=== PATIENT | male | born 1945 | race American Indian/Alaskan Native ===

== ENCOUNTER 2017-05-31 11:12 | Emergency (ER) | payer MEDICARE ==
[2017-05-31 11:13] VITALS: BMI 42.7
[2017-05-31 11:27] VITALS: O2SAT 99
[2017-05-31 12:30] LABS: BASO % 0.5 % (0.0-2.0); EOS # 0.1 K/uL (0.0-0.7); EOS % 1.6 % (0.0-4.0); LYMPH # 1.2 K/uL (1.0-4.3); LYMPH % 17.4 % (20.0-40.0); MEAN CELL VOLUME 79.4 fL (80.0-94.0); MEAN CORPUSCULAR HGB CONC 32.7 g/dL (33.0-37.0); MEAN PLATELET VOLUME 7.2 fL (7.2-11.7); MONO # 0.6 K/uL (0.0-0.8); MONO % 8.3 % (0.0-10.0); NEUT # 4.9 K/uL (1.8-7.0); NEUT % 72.2 % (50.0-75.0); RBC 4.75 Mil/uL (4.40-5.90); RED CELL DISTRIBUTION WIDTH 16.7 % (11.5-14.5); WHITE BLOOD COUNT 6.8 K/uL (4.8-10.8)
[2017-05-31 12:31] LABS: HEMOGLOBIN 12.3 g/dL (12.0-18.0)
[2017-05-31 12:40] LABS: INR 1.1; PROTHROMBIN TIME 12.2 SECONDS (9.7-12.2)
[2017-05-31 12:42] LABS: ALBUMIN 3.5 g/dL (3.5-5.0)
[2017-05-31 12:45] LABS: ALB/GLOB RATIO 1.1 (1.0-2.1); ALT/SGPT 23 U/L (21-72); AST/SGOT 34 U/L (17-59); BLOOD UREA NITROGEN 13 mg/dL (9-20); GFR AFRICAN-AMERICAN > 60; GFR NON-AFRICAN AMERICAN 54
[2017-05-31 12:46] LABS: CALCIUM 9.3 mg/dl (8.6-10.4)
[2017-05-31 12:55] LABS: B-TYPE NATRIURETIC PEPTIDE 90.5 pg/mL (0-900); CK-MB 2.22 ng/mL (0.0-3.38)
--- NOTE | 2017-05-31 12:58 | RAD ---
PROCEDURE: CHEST RADIOGRAPH, 1 VIEW HISTORY: SOB COMPARISON: None available. FINDINGS: LUNGS: History effort appears somewhat limited however there is no acute infiltrate identified at this time. PLEURA: No pneumothorax or pleural fluid seen. CARDIOVASCULAR: There is either intrinsic cardiomegaly or technically magnified. Pulmonary vascular pattern appears normal OSSEOUS STRUCTURES: No significant abnormalities. VISUALIZED UPPER ABDOMEN: Normal. OTHER FINDINGS: None. IMPRESSION: Prominent pericardial silhouette. No acute infiltrate. No pulmonary vascular congestion.
--- NOTE | 2017-05-31 13:38 | C.PDOC ---
History Of Present Illness 71-year-old male with PMHx of Hypertension and Hypercholesterolemia, presents to the emergency department with complaints of intermittent left sided chest pain described as tightness sensation that radiates to left arm. Patient denies shortness of breath, cough, fever, abdominal pain, nausea/vomiting. He admits to a Hx of atrial fibrillation, currently not on any blood thinners ( taken off blood thinners by PMD). Time Seen by Provider: 05/31/17 11:34 Chief Complaint (Nursing): Chest Pain History Per: Patient History/Exam Limitations: no limitations Current Symptoms Are (Timing): Still Present Severity: Moderate Quality: Tightness, "Pain" Exacerbating Factors: None Past Medical History Reviewed: Historical Data, Nursing Documentation, Vital Signs Vital Signs: Last Vital Signs Temp 98.7 F 05/31/17 13:43 Pulse 87 05/31/17 13:43 Resp 18 05/31/17 13:43 BP 119/73 05/31/17 13:43 Pulse Ox 99 06/10/17 11:50 - Medical History PMH: Arthritis, HTN, Hypercholesterolemia Surgical History: Denies: Pacemaker - [facility] Procedures CORONAR ARTERIOGR-2 CATH (01/31/14) LEFT HEART CARDIAC CATH (01/31/14) LT HEART ANGIOCARDIOGRAM (01/31/14) Family History: States: No Known Family Hx - Social History Hx Alcohol Use: No Hx Substance Use: No - Immunization History Hx Tetanus Toxoid Vaccination: No Hx Influenza Vaccination: Yes (2016) Hx Pneumococcal Vaccination: No Review Of Systems Except As Marked, All Systems Reviewed And Found Negative. Constitutional: Negative for: Fever Cardiovascular: Positive for: Chest Pain. Negative for: Palpitations Respiratory: Negative for: Cough, Shortness of Breath Gastrointestinal: Negative for: Nausea, Vomiting, Abdominal Pain Musculoskeletal: Positive for: Arm Pain. Negative for: Back Pain Skin: Negative for: Rash Neurological: Negative for: Weakness, Numbness Physical Exam - Physical Exam Appears: Non-toxic, No Acute Distress, Other (speaking in full sentences) Skin: Warm, Dry, No Rash Head: Atraumatic, Normacephalic Eye(s): bilateral: Normal Inspection, PERRL Oral Mucosa: Moist Neck: Normal, Normal ROM Cardiovascular: Rhythm Irregular (irregularly irregular), No Murmur Respiratory: Normal Breath Sounds, No Accessory Muscle Use Gastrointestinal/Abdominal: Normal Exam, Bowel Sounds, Soft, No Tenderness, Other (Obese) Extremity: Normal ROM, Pedal Edema (pitting, feet and lower legs B/L), No Calf Tenderness Neurological/Psych: Oriented x3, Normal Speech ED Course And Treatment - Laboratory Results Result Diagrams: 05/31/17 12:24 05/31/17 12:24 ECG: Interpreted By Me, Viewed By Me (atrial fibrillation 97 bpm, left axis deviation, RBBB, LAFB, no acute ST changes) ECG Rhythm: Atrial Fibrillation ECG Interpretation: No Acute Changes, Abnormal Interpretation Of ECG: Left Dorothy Deviation O2 Sat by Pulse Oximetry: 99 (on RA) Pulse Ox Interpretation: Normal - Radiology CXR: Interpreted by Me, Viewed By Me CXR Interpretation: Yes: No Acute Disease. No: Infiltrates Progress Note: Bloodwork, EKG and chest x-ray ordered and reviewed. 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 Reevaluation Time: 13:40 Reassessment Condition: Improved (Patient reassessed, is currently resting comfortably, has no chest pain or SOB. Explained to patient I would like to admit him to hospital for chest pain, however he states he does not want to be admitted at this time. Patient has signed out against my medical advice, and he understands that by doing so he risks worsening of his current condition, heart attack or possibly even . Patient understands he should return to ED immediately if he develops any concerning symptoms, and he was instructed to follow up with PMD in 1-2 days.) Medical Decision Making Medical Decision Making: Leaving Against Medical Advice (AMA): This patient is choosing to leave against medical advice. I have personally explained to the pt that choosing to do so may result in permanent bodily harm or . I have discussed at great length that without further evaluation and monitoring there may be unforeseen circumstances and/or deterioration causing permanent bodily harm or as a result of their choice. The pt verbalized these risks back to the physician in laymans terms. The pt is alert, oriented, and shows the mental capacity to make clear decisions regarding the pts health care at this time. The pt continues to wish to leave against medical advice. In light of the pts decision to leave AMA, follow-up has been arranged and the pt is aware of the importance of following up as instructed. The pt has been advised that they should return to the ED immediately if they change their mind at any time, or if their condition begins to change or worsen in any way. Disposition Counseled Patient/Family Regarding: Studies Performed, Diagnosis, Need For Followup, Rx Given - Disposition Referrals: Chino Parnell [Medical Doctor] - Disposition: AGAINST MEDICAL ADVICE Disposition Time: 13:40 Condition: STABLE Additional Instructions: FOLLOW UP WITH YOUR DOCTOR IN 1-2 DAYS RETURN TO ER EIMMEDIATELY IF YOU HAVE ANY CONCERNING SYMPTOMS Instructions: Atrial Flutter (ED), Chest Pain (ED), Against Medical Advice (ED) Forms: (AMA) Informed Refusal Print Language: YORUBA - POA Present On Arrival: None - Clinical Impression Clinical Impression: Chest pain, Atrial flutter, Left against medical advice - Scribe Statement The provider has reviewed the documentation as recorded by the Scribe All medical record entries made by the Scribe were at my direction and personally dictated by me. I have reviewed the chart and agree that the record accurately reflects my personal performance of the history, physical exam, medical decision making, and the department course for this patient. I have also personally directed, reviewed, and agree with the discharge instructions and disposition.
[2017-05-31 13:59] VITALS: BP 119/73; PULSE 87; RESP 18; TEMP 98.7
--- NOTE | 2017-06-02 15:43 | CARD ---
APPROVED REPORT EKG Measurement Heart [id number] [id number] <Conclusion> Atrial flutter with variable AV block vs atrial fibrillation Right bundle branch block Left anterior fascicular block Bifascicular block Cannot rule out Inferior infarct (masked by fascicular block?), age undetermined Abnormal ECG
== END 2017-05-31 13:55 | disposition left against medical advice (07) ==
LOC: C.ER 11:12
DX: I48.92 Unspecified atrial flutter (principal); R07.89 Other chest pain

== ENCOUNTER 2017-06-17 22:04 | Observation (INO) | payer MEDICARE ==
[2017-06-17 22:04] VITALS: BMI 42.7
--- NOTE | 2017-06-17 22:27 | C.PDOC ---
History Of Present Illness 71 year old male who presents to the ER with a complaint of anterior chest wall pressure pain that began tonight. Patient states the pain increases on deep inspiration; denies SOB, nausea, or vomiting. Chief Complaint (Nursing): Chest Pain History Per: Patient History/Exam Limitations: no limitations Onset/Duration Of Symptoms: Hrs Current Symptoms Are (Timing): Still Present Quality: Pressure Associated Symptoms: denies: Nausea, Dyspnea Modifying Factors: None Exacerbating Factors: Deep Breathing Alleviating Factors: None Recent travel outside of the [place]: No Past Medical History Reviewed: Historical Data, Nursing Documentation, Vital Signs Vital Signs: Last Vital Signs Temp 97.8 F 06/17/17 22:16 Pulse 90 06/18/17 03:43 Resp 16 06/18/17 03:43 BP 130/69 06/18/17 03:43 Pulse Ox 98 06/18/17 05:04 - Medical History PMH: Arthritis, HTN, Hypercholesterolemia - [facility] Procedures CORONAR ARTERIOGR-2 CATH (01/31/14) LEFT HEART CARDIAC CATH (01/31/14) LT HEART ANGIOCARDIOGRAM (01/31/14) Family History: States: Unknown Family Hx - Social History Hx Alcohol Use: No Hx Substance Use: No - Immunization History Hx Tetanus Toxoid Vaccination: No Hx Influenza Vaccination: Yes (2016) Hx Pneumococcal Vaccination: No Review Of Systems Constitutional: Negative for: Fever, Chills Cardiovascular: Positive for: Chest Pain. Negative for: Palpitations Respiratory: Negative for: Shortness of Breath, SOB with Excertion Gastrointestinal: Negative for: Abdominal Pain Physical Exam - Physical Exam Appears: Non-toxic Skin: Normal Color, Warm, Dry Head: Atraumatic, Normacephalic Oral Mucosa: Moist Chest: Symmetrical, Tenderness (Mild) Cardiovascular: Rhythm Regular, No Murmur Respiratory: Normal Breath Sounds, No Rales, No Rhonchi, No Wheezing Gastrointestinal/Abdominal: Soft, No Tenderness Neurological/Psych: Oriented x3, Normal Speech, Normal Cognition ED Course And Treatment - Laboratory Results Result Diagrams: 06/17/17 22:43 06/17/17 22:43 ECG: Interpreted By Me, Viewed By Me ECG Rhythm: Atrial Flutter ECG Interpretation: No Acute Changes Interpretation Of ECG: atrial flutter/ fibrillatio with ST-T abnormality, RBBB and LAHB abnormal tracings, no significant chnge from tracing of 05/31/2017 Rate From EC O2 Sat by Pulse Oximetry: 98 Pulse Ox Interpretation: Normal Progress Note: EKG, blood work, and CXR ordered. Ecotrin and toradol administered. Disposition Discussed With : Julius Fitzgerald Doctor Will See Patient In The: Hospital Counseled Patient/Family Regarding: Diagnosis - Disposition Disposition: HOSPITALIZED Disposition Time: 05:03 Condition: STABLE Forms: [facility] (Burmese) - POA Present On Arrival: None - Clinical Impression Clinical Impression: Chest pain, Cardiac arrhythmia - Scribe Statement The provider has reviewed the documentation as recorded by the Scribe Chadwick Tucker All medical record entries made by the Scribe were at my direction and personally dictated by me. I have reviewed the chart and agree that the record accurately reflects my personal performance of the history, physical exam, medical decision making, and the department course for this patient. I have also personally directed, reviewed, and agree with the discharge instructions and disposition.
[2017-06-17 22:50] LABS: BASO % 0.4 % (0.0-2.0); EOS # 0.1 K/uL (0.0-0.7); EOS % 1.2 % (0.0-4.0); HEMATOCRIT 41.1 % (35.0-51.0); LYMPH # 1.1 K/uL (1.0-4.3); LYMPH % 15.3 % (20.0-40.0); MEAN CELL VOLUME 79.4 fL (80.0-94.0); MEAN CORPUSCULAR HGB CONC 31.5 g/dL (33.0-37.0); MEAN PLATELET VOLUME 7.4 fL (7.2-11.7); MONO # 0.7 K/uL (0.0-0.8); MONO % 9.1 % (0.0-10.0); RED CELL DISTRIBUTION WIDTH 16.8 % (11.5-14.5); WHITE BLOOD COUNT 7.3 K/uL (4.8-10.8)
[2017-06-17 22:59] LABS: ALB/GLOB RATIO 1.2 (1.0-2.1); BILIRUBIN,TOTAL 0.4 mg/dL (0.2-1.3); TOTAL PROTEIN 6.9 g/dL (6.3-8.3)
[2017-06-17 23:00] LABS: CALCIUM 8.9 mg/dl (8.6-10.4)
[2017-06-17 23:11] LABS: TROPONIN I 0.055 ng/mL (0.00-0.120)
[2017-06-17] MEDS ORDERED: Aspirin 325 mg EC Tablets PO ONE (23:56)
[2017-06-18] MEDS ORDERED: Iodixanol 320 MG/ML 100 ML BOTTLE IV ONE (01:35)
--- NOTE | 2017-06-18 05:00 | CT ---
EXAM: CT Angiography Chest With Intravenous Contrast CLINICAL HISTORY: 71 years old, male; Pain; Chest pain; Prior surgery; Surgery type: Hernia repair; Additional info: Chest pain/ elev. D-dimer TECHNIQUE: Axial computed tomographic angiography images of the chest with intravenous contrast using pulmonary embolism protocol. This CT exam was performed using one or more of the following dose reduction techniques: automated exposure control, adjustment of the mA and/or kV according to patient size, and/or use of iterative reconstruction technique. MIP reconstructed images were created and reviewed. Coronal and sagittal reformatted images were created and reviewed. CONTRAST: 100 mL of administered intravenously. COMPARISON: No relevant prior studies available. FINDINGS: Pulmonary arteries: No pulmonary embolism. Aorta: No thoracic aortic aneurysm. Lungs: No mass. No consolidation. Pleural spaces: A small left-sided pleural effusion is identified. No pneumothorax. Heart: The heart is enlarged, without pericardial effusion. No evidence of right heart dysfunction. Bones: No acute fracture. Lymph nodes: No significant pathologically enlarged lymph nodes. IMPRESSION: No pulmonary embolism. A small left-sided pleural effusion is identified. Persistent cardiomegaly.
--- NOTE | 2017-06-18 08:52 | RAD ---
PROCEDURE: CHEST RADIOGRAPH, 1 VIEW HISTORY: Chest pain COMPARISON: 05/31/2017. FINDINGS: LUNGS: The lungs are well inflated and clear. PLEURA: No pneumothorax or pleural fluid seen. CARDIOVASCULAR: There is moderate cardiomegaly. OSSEOUS STRUCTURES: No significant abnormalities. VISUALIZED UPPER ABDOMEN: Normal. OTHER FINDINGS: None. IMPRESSION: No acute findings.
--- NOTE | 2017-06-18 09:19 | CP.PCM.CON ---
History of Present Illness - History of Present Illness History of Present Illness: 71 y/o male was feeling chest iscomefort associated plapitation and came in to [facility] ER for eval. While in ER pt was fount to be in atrial flutter with rapid ventricular response and treated with cardizem that controlled the rate. Pt physician is Dr Fitzgerald and at present no abdomial pail had palpitation now asymptomatic no chest pain. comfortable Review of Systems - Review of Systems Systems not reviewed;Unavailable: Acuity of Condition - Constitutional Constitutional: Fatigue - EENT Eyes: absent: Change in Vision Nose/Mouth/Throat: absent: Nasal Discharge - Cardiovascular Cardiovascular: Dyspnea, Palpitations, Rapid Heart Rate. absent: Chest Pain - Respiratory Respiratory: Dyspnea on Exertion - Gastrointestinal Gastrointestinal: absent: Bloating - Genitourinary Genitourinary: absent: Dysuria - Musculoskeletal Musculoskeletal: absent: Joint Swelling - Integumentary Integumentary: absent: Change in Nails - Neurological Neurological: absent: Abnormal Movements - Psychiatric Psychiatric: absent: Anxiety - Endocrine Endocrine: absent: Cold Intolorance - Hematologic/Lymphatic Hematologic: absent: Easy Bruising Past Patient History - Past Social History Smoking Status: Never Smoked - CARDIAC Hx Hypercholesterolemia: Yes Hx Hypertension: Yes - NEUROLOGICAL Hx Paralysis: No - ENDOCRINE/METABOLIC Hx Diabetes Mellitus Type 2: Yes Hx Systemic Lupus Erythematosus: Yes - HEMATOLOGICAL/ONCOLOGICAL Hx Blood Transfusions: No Hx Blood Transfusion Reaction: No - MUSCULOSKELETAL/RHEUMATOLOGICAL Hx Arthritis: Yes - PSYCHIATRIC Hx Substance Use: No - SURGICAL HISTORY Hx Surgeries: Yes Hx Herniorrhaphy: Yes (Umbilical) - ANESTHESIA Hx Anesthesia: Yes Hx Anesthesia Reactions: No Hx Malignant Hyperthermia: No Meds Allergies/Adverse Reactions: Allergies Allergy/AdvReac Type Severity Reaction Status Date / Time No Known Allergies Allergy Verified 05/31/17 11:20 - Medications Medications: Current Medications Aspirin (Ecotrin) 325 mg PO DAILY [facility] Enoxaparin Sodium (Lovenox) 60 mg SC Q12 [facility] Furosemide (Lasix) 40 mg PO DAILY [facility] Glimepiride (Amaryl) 4 mg PO DAILY [facility] Home Med (Atorvastatin [Lipitor]) 10 mg PO HS [facility] Home Med (Metformin [Glucophage]) 1,000 mg PO BID [facility] Prednisone (Prednisone Tab) 10 mg PO DAILY [facility] Physical Exam - Constitutional Appears: Well - Head Exam Head Exam: ATRAUMATIC, NORMOCEPHALIC - Eye Exam Eye Exam: Normal appearance - ENT Exam ENT Exam: Mucous Membranes Moist - Neck Exam Neck exam: Positive for: Normal Inspection - Respiratory Exam Respiratory Exam: NORMAL BREATHING PATTERN. absent: Rales - Cardiovascular Exam Cardiovascular Exam: REGULAR RHYTHM, +S1, +S2 - GI/Abdominal Exam GI & Abdominal Exam: Soft - Exam External exam: absent: Ecchymosis - Extremities Exam Extremities exam: Negative for: calf tenderness - Neurological Exam Neurological exam: Alert - Psychiatric Exam Psychiatric exam: Normal Affect - Skin Skin Exam: Dry Results - Vital Signs Recent Vital Signs: Last Vital Signs Temp 97.5 F L 06/18/17 07:20 Pulse 65 06/18/17 07:20 Resp 16 06/18/17 07:20 BP 137/57 L 06/18/17 07:20 Pulse Ox 99 06/18/17 07:20 - Labs Result Diagrams: 06/17/17 22:43 06/17/17 22:43 Labs: Laboratory Results - last 24 hr 06/18/17 06/18/17 06:56 07:43 POC Glucose (mg/dL) 160 H Total Creatine Kinase 291 H CK-MB (Mass) 1.68 Troponin I, Quant 0.0590 Assessment & Plan (1) Atrial flutter Assessment and Plan: Pt with atypical atrial flutter treated with rate control. Explained to pt would need cardiac catheterization and ablation. Not sure if he will be staying at the moment Status: Acute (2) Cardiac arrhythmia Status: Acute
[2017-06-18] MEDS ORDERED: Home Med 1 UNIT (Metformin [Glucophage] 1,000 MG) PO SCH (10:00)
[2017-06-18] MEDS ORDERED: Aspirin 325 mg EC Tablets PO SCH (10:00)
[2017-06-18] MEDS ORDERED: Enoxaparin 60 mg Syringe SC SCH (10:00)
[2017-06-18] MEDS ORDERED: Enoxaparin 40 mg Syringe SC SCH (10:00)
[2017-06-18 14:21] VITALS: PULSE 88; RESP 16; O2SAT 100
[2017-06-18 15:01] VITALS: BP 152/82; TEMP 98.7
--- NOTE | 2017-06-18 15:03 | CP.PCM.PN ---
Subjective - Date & Time of Evaluation Date of Evaluation: 06/18/17 Time of Evaluation: 14:45 - Subjective Subjective: PGY3 House Doctor Note; Called for AMA. Per nurse, Rashmi, Dr. Fitzgerald spoke with patient and agreed to see him in the office on Tuesday and is aware patient is signing out AMA. Dr. Mariano and Dr. Gomez have seen the patient. Patient aware that he could stay and receive medication, tests and possible a catheterization or ablation. Patient also aware of risks of leaving which include but are not limited to heart attack, stroke, blood clot, syncope, trauma and . Patient is AAO x3. Heart rate is irregular but rate controlled. Patient signed AMA form. Objective - Vital Signs/Intake and Output Vital Signs (last 24 hours): Temp Pulse Resp BP Pulse Ox 97.5 F L 88 16 133/71 100 06/18/17 07:20 06/18/17 14:19 06/18/17 14:19 06/18/17 12:04 06/18/17 14:19 - Medications Medications: Current Medications Aspirin (Ecotrin) 325 mg PO DAILY [facility] Last Admin: 06/18/17 10:02 Dose: 325 mg Enoxaparin Sodium (Lovenox) 60 mg SC Q12 [facility] Last Admin: 06/18/17 10:07 Dose: 60 mg Furosemide (Lasix) 40 mg PO DAILY [facility] Last Admin: 06/18/17 10:00 Dose: 40 mg Glimepiride (Amaryl) 4 mg PO DAILY [facility] Last Admin: 06/18/17 10:03 Dose: 4 mg Metformin HCl (Glucophage) 1,000 mg PO BIDCC [facility] Last Admin: 06/18/17 10:40 Dose: 1,000 mg Prednisone (Prednisone Tab) 10 mg PO DAILY [facility] Last Admin: 06/18/17 10:03 Dose: 10 mg Rosuvastatin Calcium (Crestor) 5 mg PO HS [facility] - Labs Labs: PT 11.2 SECONDS (9.7-12.2) 06/17/17 23:44 INR 1.0 06/17/17 23:44 APTT 32 SECONDS (21-34) 06/17/17 23:44
--- NOTE | 2017-06-19 04:32 | HP ---
HISTORY OF PRESENT ILLNESS: A 71-year-old male with history of atrial fibrillation and also complaining of chest tightness. The patient came to the hospital admission. The patient has sleep apnea, diabetes, lupus. PHYSICAL EXAMINATION: GENERAL: The patient is awake, alert and oriented. VITAL SIGNS: Temperature is 98, pulse 90. HEENT: Within normal limits. NECK: Supple. CHEST: Symmetrical. HEART: Regular. ABDOMEN: Soft. EXTREMITIES: No edema. IMPRESSION: The patient suffers from . Cardiac evaluation. The patient is on bedrest, supportive care. Julius Fitzgerald MD
--- NOTE | 2017-06-20 09:05 | CARD ---
APPROVED REPORT EXAM: Two-dimensional and M-mode echocardiogram with Doppler and color Doppler. Other Information Quality : GoodRhythm : NSR INDICATION Atrial Fibrillation Chest Pain CARDIAC ARRYTHMIA M-Mode DIMENSIONS RVDd2.30 (2.1-3.2cm)Left Atrium (MM)4.99 (2.5-4.0cm) IVSd1.13 (0.7-1.1cm)Aortic Root3.83 (2.2-3.7cm) LVDd6.13 (4.0-5.6cm)Aortic Cusp Exc.1.94 (1.5-2.0cm) PWd1.17 (0.7-1.1cm)FS (%) 26 % LVDs4.53 (2.0-3.8cm)LVEF (%)50 (>50%) Mitral Valve MV E Iknbdgjz24.0cm/sMV A Zrysvoyy34.2cm/sE/A ratio1.4 TDI E/Lateral E'0.0E/Medial E'0.0 Tricuspid Valve TR Peak Glmtralb101wm/sTR Peak [id number] <Conclusion> Left ventricle: thickness: normal; size: normal; overall ejection fraction: 50%: diastolic filling pressures: elevatedl Mitral valve: annulus: normal: leaflets: normal: excursion: normal; no significant trans-mitral gradient: no significant incompetence: left atrium: dilated Aortic valve: leaflets: normal: excursion: normal; no significant trans-aortic gradient: No significant incompetence: aortic root: normal Right sided Structures: Pulmonary valve: normal; no significant incompetence; Tricuspid valve: normal; no significant incompetence: Intra-cardiac hemodynamics: pulmonary systolic pressures: normal; central venous pressures: normal No pericardial effusion
--- NOTE | 2017-06-20 14:29 | CARD ---
APPROVED REPORT EKG Measurement Heart [id number] <Conclusion> Atrial flutter with variable AV block Right bundle branch block Left anterior fascicular block Bifascicular block Abnormal ECG
--- NOTE | 2017-06-27 08:49 | CARD ---
APPROVED REPORT EKG Measurement Heart [id number] <Conclusion> Atrial flutter with variable AV block Right bundle branch block Left anterior fascicular block Bifascicular block Possible Lateral infarct, age undetermined Abnormal ECG
== END 2017-06-18 15:00 | disposition left against medical advice (07) ==
LOC: C.ER 22:04 → C.9E 06-18 05:04 → C.6T 06-18 14:45 → C.9E 06-18 15:01
PROVIDERS: ADMIT Internal Medicine Pulmonary Disease; ATTEND Internal Medicine Pulmonary Disease
DX: R07.9 Chest pain, unspecified (principal); I49.8 Other specified cardiac arrhythmias; G47.30 Sleep apnea, unspecified; I10 Essential (primary) hypertension; I48.91 Unspecified atrial fibrillation; M32.9 Systemic lupus erythematosus, unspecified
CPT/HCPCS: 71010; 71275; 80053; 82948; 84484; 85025; 85378; 85610; 85730; 93005; 93306; 96372; 96374; 99285; G0378; J1650; J1885; Q9967